=== PATIENT | male | born 1995 | race Caucasian/White ===

== ENCOUNTER 2017-03-09 17:43 | Emergency (ER) | payer OTHER ==
--- NOTE | 2017-03-09 19:31 | ED Physician Documentation ---
PD HPI HEENT - Stated complaint Stated Complaint: EAR PX - Chief complaint Chief Complaint: Heent - History obtained from History obtained from: Patient - History of Present Illness Timing - onset: How many days ago (2) Timing - duration: Days (2) Timing - details: Gradual onset, Still present Location: Right ear Improves: Nothing Worsens: Position Associated symptoms: No: Fever, Congestion, Rhinorrhea Similar symptoms before: Has not had sx before, Other (does use qtips regularly. ) Recently seen: Not recently seen Review of Systems Constitutional: denies: Fever, Chills Ears: reports: Ear pain, Drainage/discharge (mild white fluid). denies: Tinnitus/ringing, Foreign body Nose: denies: Rhinorrhea / runny nose, Congestion Throat: denies: Sore throat Cardiac: denies: Chest pain / pressure Respiratory: denies: Cough GI: denies: Vomiting, Diarrhea PD PAST MEDICAL HISTORY - Past Medical History Past Medical History: No - Past Surgical History Past Surgical History: No - Present Medications Home Medications: Ambulatory Orders Medication Instructions Recorded Confirmed No Known Home Medications [No 03/09/17 03/09/17 Known Home Medications] - Allergies Allergies/Adverse Reactions: Allergies Allergy/AdvReac Type Severity Reaction Status Date / Time No Known Drug Allergies Allergy Verified 03/09/17 18:01 - Social History Does the pt smoke?: No Smoking Status: Never smoker Does the pt drink ETOH?: No Does the pt have substance abuse?: No - Immunizations Immunizations are current?: Yes - POLST Patient has POLST: No PD ED PE NORMAL - Vitals Vital signs reviewed: Yes - General General: Alert and oriented X 3, Well developed/nourished - HEENT HEENT: PERRL, EOMI, Moist mucous membranes, Pharynx benign. No: Ears normal ( right ear outer canal with focal redness, swelling, and some exudate. TM appears normal. ) - Neck Neck: Supple, no meningeal sign, No adenopathy - Cardiac Cardiac: RRR, No murmur - Respiratory Respiratory: Clear bilaterally Results - Vitals Vitals: Oxygen O2 Source Room air PD MEDICAL DECISION MAKING - ED course Complexity details: considered differential (outer canal with area of redness and dried blood. Mild swelling locally. ), d/w patient Departure - Departure Disposition: Home, Self Care Clinical Impression: Ear canal abrasion Qualifiers: Encounter type: initial encounter Laterality: right Qualified Code(s): S00.411A - Abrasion of right ear, initial encounter Otitis externa Qualifiers: Otitis externa type: other infective Chronicity: acute Laterality: right Qualified Code(s): H60.391 - Other infective otitis externa, right ear Condition: Stable Record reviewed to determine appropriate education?: Yes Instructions: ED Otitis Externa Follow-Up: SRI VELASQUEZ DO [Primary Care Provider] - Comments: Tylenol or ibuprofen if needed for pains. Looks like a small abrasion of the ear canal and has local redness and swelling so either inflammation or infection. The eardrops used 2 drops 4-5 times a day for the next few days has both an antibiotic and an anti-inflammatory. This should heal up over the next few days. Recheck if not improved during that time. Discharge Date/Time: 03/09/17 19:49
[2017-03-09] MEDS ORDERED: NEOMYCIN/POLYMYX/HC OTIC DROPS RIGHTEAR STA (19:37)
[2017-03-09] MEDS ORDERED: IBUPROFEN 600 MG TABLET PO STA (19:37)
[2017-03-09] MEDS ORDERED: ACETAMINOPHEN 325 MG TABLET PO STA (19:37)
[2017-03-09 19:51] VITALS: BP 123/63
== END 2017-03-09 19:49 | disposition home or self-care (01) ==
LOC: ED 17:43
DX: S00.411A Abrasion of right ear, initial encounter (principal); X58.XXXA Exposure to other specified factors, initial encounter; H60.391 Other infective otitis externa, right ear
CPT/HCPCS: 99283; A9270

== ENCOUNTER 2021-06-19 08:00 | Outpatient (CLI) | payer OTHER ==
--- NOTE | 2021-06-20 16:51 | XRAY Report ---
PROCEDURE: Chest 2 View X-Ray INDICATIONS: L CHEST PX TECHNIQUE: 2 view(s) of the chest. COMPARISON: None. FINDINGS: Surgical changes and devices: None. Lungs and pleura: No pleural effusions or pneumothorax. Lungs are clear. Mediastinum: Mediastinal contours are normal. Heart size is normal. Bones and chest wall: No suspicious bony abnormalities. Soft tissues appear unremarkable. IMPRESSION: No acute pulmonary process. Reviewed by: Nanda Khoury MD on 06/20/2021 4:50 PM PDT Approved by: Nanda Khoury MD on 06/20/2021 4:50 PM PDT Station ID: [id number]
== END 2021-06-19 23:59 | disposition home or self-care (01) ==
LOC: DI.N 08:00
PROVIDERS: ATTEND Physician Assistant Medical
DX: R07.89 Other chest pain (principal)

== ENCOUNTER 2023-11-05 08:00 | Outpatient (CLI) | payer OTHER | END 2023-11-05 23:59 | disposition home or self-care (01) | LOC: LAB.N 08:00 | PROVIDERS: ATTEND Physician Assistant Medical | DX: R30.0 Dysuria (principal) | CPT/HCPCS: 87086 ==